=== PATIENT | male | born 1945 | race Caucasian/White ===

== ENCOUNTER 2018-04-21 09:00 | Outpatient (CLI) | payer MEDICARE, BC ==
[2018-04-21 10:04] LABS: Hemoglobin 14.8 g/dL (14.0-18.0); Mean Corpuscular HGB CONC 33.8 g/dL (32.0-36.0); Mean Corpuscular Hemoglobin 33.2 pg (27.0-31.0); Mean Corpuscular Volume 98.1 fl (80.0-94.0); Mean Platelet Volume 6.7 fL (7.4-10.4); Platelet Count 206 thou/uL (130-400); RBC Distribution Width 11.9 % (11.5-14.5); Red Blood Cell (RBC) Count 4.45 mill/uL (4.70-6.10); White Blood Cell (WBC) Count 8.4 thou/uL (4.8-10.8)
[2018-04-21 10:14] LABS: Prothrombin Time 12.8 SEC (12.0-14.7)
[2018-04-21 10:31] LABS: Anion Gap 10 mmol/L (10-20); BUN (Urea Nitrogen) 27 mg/dL (8.4-25.7); Calc. Creatinine Clearance 0 mL/min (70-130); Calcium 10.2 mg/dL (7.8-10.44); Carbon Dioxide 30 mmol/L (23-31); Chloride 102 mmol/L (98-107); Estimated GFR-MDRD 56; Glucose 97 mg/dL (80-115); Potassium 4.9 mmol/L (3.5-5.1); Sodium 137 mmol/L (136-145)
== END 2018-04-21 09:01 | disposition home or self-care (01) ==
LOC: LABBT 09:00
PROVIDERS: ATTEND Urology
DX: Z01.812 Encounter for preprocedural laboratory examination (principal); D49.4 Neoplasm of unspecified behavior of bladder; N21.0 Calculus in bladder
CPT/HCPCS: 80048; 85027; 85610; 85730; 93005; 93010

== ENCOUNTER 2018-04-23 07:45 | Day surgery (SDC) | payer MEDICARE, BC ==
[2018-04-21 09:34] VITALS: BMI 33.4
[2018-04-23] MEDS ORDERED: Levofloxacin 500 mg/D5W 100 ml Premix Bag ONE (08:30)
[2018-04-23] MEDS ORDERED: Fentanyl 250 MCG/5 ML VIAL ONE (08:41)
[2018-04-23] MEDS ORDERED: Iothalamate Meglumine 60% 50 ML VIAL FS ONE (09:35)
--- NOTE | 2018-04-23 11:28 | RAD ---
INTRAOPERATIVE FLUOROSCOPY FOR RETROGRADE IVP: HISTORY: Stones. FINDINGS: Intraoperative fluoroscopy is provided for Dr. Nolasco. A total of 10 images are submitted for interp retation. FINDINGS: There is an oval area in the distal left ureter which may represent focal calculus measuring 1.2 cm i n craniocaudal dimension. This finding appears to migrate. There is mild dilatation of the left int rarenal collecting system. The right intra- and extrarenal collecting systems unremarkable. IMPRESSION: Possible distal left ureteral calculus that migrates during the exam. POS: EMILY
[2018-04-23] MEDS ORDERED: traMADol HCl 50 MG TAB ONE (12:00)
[2018-04-23] MEDS ORDERED: PHENYLEPHRINE-NS 100 MCG/ML 10 ML SYRINGE ONE (14:00)
[2018-04-23] MEDS ORDERED: PROPOFOL 200 MG/20 ML VIAL ONE (14:00)
[2018-04-23] MEDS ORDERED: Lidocaine 1% PF 5 ML VIAL ONE (14:00)
[2018-04-23] MEDS ORDERED: ePHEDrine/0.9% NaCl/PF SYRINGE 50 mg/10 ml ONE (14:00)
--- NOTE | 2018-04-23 20:50 | OP ---
DATE OF PROCEDURE: 04/23/2018 PREOPERATIVE DIAGNOSES: Bladder stones, bladder lesion. POSTOPERATIVE DIAGNOSES: Bladder stones, bladder lesion. PROCEDURE PERFORMED: Cystoscopy, laser lithotripsy of bladder stones, bilateral retrograde pyelograms, and TURBT. SURGEON: Dr. Nolasco. ANESTHETIC: General. ESTIMATED BLOOD LOSS: 50 mL. DRAINS: An 20-Brazilian Dacosta catheter. FINDINGS: There was no stricture disease, there was enlarged lateral lobes and moderate median lobe. There were 2 ureteral orifices with clear efflux, two bladder stones, largest over a centimeter, probably between half a centimeter and centimeter. Retrograde studies appeared normal. He had a 2 cm area of papillary mucosal changes lateral to left ureteral orifice and not involving it , this was resected. OPERATIVE TECHNIQUE: After obtaining written and verbal consent from the patient, after receiving IV antibiotics, he was taken to the operating suite. He was placed in supine position on the treatment table. PlexiPulses were placed on his lower extremities and turned on. He was given a general anesthetic, oral intubation, and he was placed in the dorsal lithotomy position , sterilely prepped and draped. A health services manager film was obtained in fluoroscopy unit. Cystoscopy was performed with a 22-Brazilian sheath. This was well lubricated and passed under direct vision through the male urethra into the bladder with the aid of a 30-degree lens and video camera and monitor. The bladder was filled and emptied number of times being examined both the 30 and the 70-degree lens with the findings above. At this point, we went ahead and brought in the laser fiber and used this to fragment the stones into small pieces to elk out and and then three or four of them also removed with grasping forceps until there were no fragments remaining in the bladder. We then brought in a 5- Brazilian Pollack catheter, flushed with contrast and was placed into the left ureteral orifice and contrast was slowly injected in a retrograde manner filling out the left collecting system. There is no obvious filling defect or stone seen along the course and it drained well. The right side was done in a similar manner with similar findings. At this point, the instruments were removed. He was gently dilated with Shakira sounds to 26 Brazilian. A 24 Brazilian resectoscope sheath with visual obturator and 30-degree lens was passed through the male urethra into the bladder and Rendeevoo resectoscope with a gyrus generator and bladder tumor loop were used and 30-degree lens and video camera were used. We resected this area of papillary mucosa elliking out the fragments and coagulating the base and edges with electrocautery unit. At this point, the instruments were removed. Dacosta catheter was sterilely inserted and 10 mL placed in the balloon gravity. It was draining clear urine. He was taken out of dorsal lithotomy position. He was awakened and extubated and taken by stretcher to the recovery room. DEBORAH
[2018-04-27 18:11] LABS: CA Oxalate Dihydrate 30 % (.); CA Oxalate Monohydrate 50 % (.); CA Phosphate 20 % (.); Color Brown (.); Stone Weight 204.7 mg (.)
== END 2018-04-23 13:20 | disposition home or self-care (01) ==
LOC: SDC 07:45
PROVIDERS: ATTEND Urology
PROC: 0TCB8ZZ Extirpation of Matter from Bladder, Via Natural or Artificial Opening Endoscopic (ICD-10-PCS; principal; 2018-04-23)
PROC: 0TBB8ZX Excision of Bladder, Via Natural or Artificial Opening Endoscopic, Diagnostic (ICD-10-PCS; 2018-04-23)
DX: N30.80 Other cystitis without hematuria (principal); N21.0 Calculus in bladder; I10 Essential (primary) hypertension; E78.00 Pure hypercholesterolemia, unspecified; G47.30 Sleep apnea, unspecified; Z79.82 Long term (current) use of aspirin; Z79.899 Other long term (current) drug therapy
CPT/HCPCS: 52234; 52317; 74420; 82365; 88300; 88305; C1758; J1956; J2001; J2704; J3010; Q9961

== ENCOUNTER 2021-05-28 16:06 | Outpatient (CLI) | payer MEDICARE, BC ==
[~2021-05-28 16:06] MED LIST: Iopamidol 370 76% 100 ML VIAL ONE
== END 2021-05-28 16:07 | disposition home or self-care (01) ==
LOC: BICCT 16:06
PROVIDERS: ATTEND Otolaryngology Plastic Surgery within the Head & Neck
DX: L04.9 Acute lymphadenitis, unspecified (principal); R59.0 Localized enlarged lymph nodes
CPT/HCPCS: 70491; 82565; Q9967

== ENCOUNTER 2021-06-14 09:42 | Outpatient (CLI) | payer MEDICARE, BC | END 2021-06-14 09:43 | disposition home or self-care (01) | LOC: PET 09:42 | PROVIDERS: ATTEND Otolaryngology Plastic Surgery within the Head & Neck | DX: C09.0 Malignant neoplasm of tonsillar fossa (principal); C77.0 Secondary and unspecified malignant neoplasm of lymph nodes of head, face and neck | CPT/HCPCS: 78815; A9552 ==

== ENCOUNTER 2021-10-22 09:30 | Outpatient (CLI) | payer MEDICARE, BC | END 2021-10-22 09:31 | disposition home or self-care (01) | LOC: PET 09:30 | PROVIDERS: ATTEND Internal Medicine Hematology & Oncology | DX: C02.9 Malignant neoplasm of tongue, unspecified (principal) | CPT/HCPCS: 78815; A9552 ==

== ENCOUNTER 2021-10-31 12:49 | Outpatient (CLI) | payer MEDICARE, BC ==
[2021-10-31 15:05] LABS: Hemoglobin 14.2 g/dL (13.5-17.5); Mean Corpuscular HGB CONC 34.2 g/dL (32.0-36.0); Mean Corpuscular Volume 102.2 fl (81.2-95.1); Mean Platelet Volume 8.8 fl (7.4-10.4); Platelet Count 168 10x3/uL (150-450); RBC Distribution Width 12.7 % (11.5-14.5); Red Blood Cell (RBC) Count 4.06 10x6/uL (4.32-5.72)
[2021-10-31 15:31] LABS: Anion Gap 13 mmol/L (10-20); BUN (Urea Nitrogen) 21 mg/dL (8.4-25.7); Calc. Creatinine Clearance 0 mL/min (70-130); Calcium 9.9 mg/dL (7.8-10.44); Carbon Dioxide 26 mmol/L (23-31); Chloride 102 mmol/L (98-107); Glucose 90 mg/dL (83-110); Potassium 4.5 mmol/L (3.5-5.1); Sodium 136 mmol/L (136-145)
[2021-10-31 15:40] LABS: PTT 27.4 sec (22.0-33.0); Prothrombin Time 11.2 sec (9.5-12.1)
[2021-10-31 16:10] LABS: Bilirubin Neg (Negative); Blood, Urine 50 (Negative); Clarity Slightly Cloudy (Clear); Glucose, Urine (Dipstick) Normal (Negative); Ketone, Urine Negative (Negative); Leukocyte 500 (Negative); Nitrite Negative (Negative); Protein, Urine (Dipstick) 30 mg/dl (Neg-Trace); Specific Gravity, Urine 1.015 (1.002-1.036)
[2021-10-31 16:24] LABS: Bacteria/HPF 1+ HPF (None Seen); Squamous Epithelial 0-3 HPF (0-3); WBC/HPF 21-50 HPF (0-3)
[2021-10-31 22:22] LABS: SARS-CoV-2 PCR by NAA Not Detected (NotDetected)
== END 2021-10-31 12:50 | disposition home or self-care (01) ==
LOC: LABBT 12:49
PROVIDERS: ATTEND Urology
DX: Z01.812 Encounter for preprocedural laboratory examination (principal); Z20.822 Contact with and (suspected) exposure to COVID-19
CPT/HCPCS: 80048; 81001; 85027; 85610; 85730; 87086; U0003; U0005

== ENCOUNTER 2021-11-04 09:19 | Day surgery (SDC) | payer MEDICARE, BC ==
[2021-11-01 13:55] VITALS: BMI 27.2
[2021-11-04] MEDS ORDERED: ceFAZolin 2 GM/DEX 5% 100 ML BAG ONE (11:23)
[2021-11-04] MEDS ORDERED: Fentanyl 100 MCG/2 ML VIAL ONE (12:11)
[2021-11-04] MEDS ORDERED: Famotidine/PF 20 mg/2ml Vial ONE (12:11)
[2021-11-04] MEDS ORDERED: ePHEDrine 50 MG/ML VIAL ONE (12:18)
[2021-11-04] MEDS ORDERED: PROPOFOL 200 MG/20 ML VIAL ONE (12:18)
[2021-11-04] MEDS ORDERED: Metoclopramide HCl 10 MG/2 ML VIAL ONE (12:18)
[2021-11-04] MEDS ORDERED: Lidocaine 1% PF 5 ML VIAL ONE (12:18)
[2021-11-04] MEDS ORDERED: Phenylephrine 10 MG/ML VIAL ONE (12:18)
[2021-11-04] MEDS ORDERED: Ondansetron PF 4 MG/2 ML Vial ONE (12:18)
== END 2021-11-04 14:25 | disposition home or self-care (01) ==
LOC: SDC 09:19
PROVIDERS: ATTEND Urology
PROC: 0T5B8ZZ Destruction of Bladder, Via Natural or Artificial Opening Endoscopic (ICD-10-PCS; principal; 2021-11-04)
DX: N32.89 Other specified disorders of bladder (principal); N40.0 Benign prostatic hyperplasia without lower urinary tract symptoms; I10 Essential (primary) hypertension; Z79.82 Long term (current) use of aspirin; Z79.899 Other long term (current) drug therapy
CPT/HCPCS: J2370; J2405; J2704; J2765; J3010; J3490; S0028

== ENCOUNTER 2022-07-14 09:31 | Outpatient (CLI) | payer MEDICARE, BC | END 2022-07-14 09:32 | disposition home or self-care (01) | LOC: BICRAD 09:31 | PROVIDERS: ATTEND Internal Medicine Cardiovascular Disease | DX: T82.110A Breakdown (mechanical) of cardiac electrode, initial encounter (principal); I11.0 Hypertensive heart disease with heart failure; I50.22 Chronic systolic (congestive) heart failure | CPT/HCPCS: 71046 ==

== ENCOUNTER 2022-07-15 10:51 | Outpatient (CLI) | payer MEDICARE, BC ==
[2022-07-15 12:24] LABS: Hemoglobin 14.3 g/dL (13.5-17.5); Mean Corpuscular HGB CONC 34.3 g/dL (32.0-36.0); Mean Corpuscular Hemoglobin 33.5 pg (27.0-33.0); Mean Corpuscular Volume 97.7 fl (81.2-95.1); Mean Platelet Volume 8.4 fl (7.4-10.4); Platelet Count 217 10x3/uL (150-450); RBC Distribution Width 12.7 % (11.5-14.5); Red Blood Cell (RBC) Count 4.27 10x6/uL (4.32-5.72); White Blood Cell (WBC) Count 4.6 10x3/uL (3.5-10.5)
[2022-07-15 12:33] LABS: INR-International Normal Ratio 0.9; Prothrombin Time 10.2 sec (9.5-12.1)
[2022-07-15 12:36] LABS: Anion Gap 13 mmol/L (10-20); BUN (Urea Nitrogen) 29 mg/dL (8.4-25.7); Calc. Creatinine Clearance 0 mL/min (70-130); Carbon Dioxide 26 mmol/L (23-31); Chloride 105 mmol/L (98-107); Potassium 4.6 mmol/L (3.5-5.1); Sodium 139 mmol/L (136-145)
[2022-07-15 12:37] LABS: Calcium 9.6 mg/dL (7.8-10.44); Estimated GFR 90; Glucose 93 mg/dL (83-110)
== END 2022-07-15 10:52 | disposition home or self-care (01) ==
LOC: LABBT 10:51
PROVIDERS: ATTEND Internal Medicine Cardiovascular Disease
DX: Z01.812 Encounter for preprocedural laboratory examination (principal); Z20.822 Contact with and (suspected) exposure to COVID-19
CPT/HCPCS: 80048; 85027; 85610; 87811

== ENCOUNTER 2023-03-23 11:05 | Outpatient (CLI) | payer MEDICARE, BC | END 2023-03-23 11:06 | disposition home or self-care (01) | LOC: BICRAD 11:05 | PROVIDERS: ATTEND Psychiatry & Neurology Neurology | DX: Z48.812 Encounter for surgical aftercare following surgery on the circulatory system (principal); Z95.810 Presence of automatic (implantable) cardiac defibrillator | CPT/HCPCS: 71045 ==

== ENCOUNTER 2023-03-25 11:59 | Outpatient (CLI) | payer MEDICARE, BC ==
[~2023-03-25 11:59] MED LIST changes: -Iopamidol 370 76% 100 ML VIAL ONE; +Magnevist 469MG/ML 20 ML VIAL ONE
== END 2023-03-25 12:00 | disposition home or self-care (01) ==
LOC: MRI 11:59
PROVIDERS: ATTEND Psychiatry & Neurology Neurology
DX: G50.0 Trigeminal neuralgia (principal)
CPT/HCPCS: 70553; A9579

== ENCOUNTER 2023-12-23 09:08 | Outpatient (CLI) | payer MEDICARE, BC ==
[2023-12-23 10:36] LABS: Hematocrit 44.2 % (38.8-50.0); Hemoglobin 15.2 g/dL (13.5-17.5); Mean Corpuscular HGB CONC 34.4 g/dL (32.0-36.0); Mean Corpuscular Hemoglobin 33.9 pg (27.0-33.0); Mean Corpuscular Volume 98.4 fl (81.2-95.1); Mean Platelet Volume 8.3 fl (7.4-10.4); Platelet Count 182 10x3/uL (150-450); Red Blood Cell (RBC) Count 4.49 10x6/uL (4.32-5.72); White Blood Cell (WBC) Count 5.3 10x3/uL (3.5-10.5)
[2023-12-23 10:49] LABS: PTT 25.9 sec (22.0-33.0); Prothrombin Time 10.4 sec (9.5-12.1)
[2023-12-23 10:59] LABS: Anion Gap 13 mmol/L (10-20); BUN (Urea Nitrogen) 26 mg/dL (8.4-25.7); Calc. Creatinine Clearance 0 mL/min (70-130); Calcium 9.9 mg/dL (7.8-10.44); Carbon Dioxide 27 mmol/L (23-31); Chloride 107 mmol/L (98-107); Estimated GFR 83; Glucose 97 mg/dL (83-110); Potassium 4.5 mmol/L (3.5-5.1); Sodium 142 mmol/L (136-145)
== END 2023-12-23 09:09 | disposition home or self-care (01) ==
LOC: LABBT 09:08
PROVIDERS: ATTEND Surgery
DX: Z01.818 Encounter for other preprocedural examination (principal); C67.9 Malignant neoplasm of bladder, unspecified; I50.22 Chronic systolic (congestive) heart failure; Z79.899 Other long term (current) drug therapy
CPT/HCPCS: 80048; 85027; 85610; 85730; 87086; 93005; 93010

== ENCOUNTER 2023-12-29 10:11 | Inpatient (IN) | payer MEDICARE ==
[2023-12-23 10:03] VITALS: BMI 29.7
[2023-12-29] MEDS ORDERED: Iopamidol 30 ML ONE (12:33)
[2023-12-29] MEDS ORDERED: Ondansetron PF 4 MG/2 ML Vial ONE (12:38)
[2023-12-29] MEDS ORDERED: CEFAZOLIN 2 GM VIAL ONE (12:38)
[2023-12-29] MEDS ORDERED: Lidocaine 1% PF 5 ML VIAL ONE (12:38)
[2023-12-29] MEDS ORDERED: Dexamethasone 4 mg/ml Vial ONE (12:38)
[2023-12-29] MEDS ORDERED: Sodium Chloride 0.9% 100 ML ONE (12:39)
[2023-12-29] MEDS ORDERED: fentaNYL PF 100 MCG/2 ML SYRINGE ONE (12:39)
[2023-12-29] MEDS ORDERED: PROPOFOL 40 ML ONE (12:39)
[2023-12-29] MEDS ORDERED: Etomidate 40 MG (20 mL) VIAL ONE (12:48)
[2023-12-29] MEDS ORDERED: PHENYLEPHRINE-NS 100 MCG/ML 10 ML SYRINGE ONE (12:52)
[2023-12-29] MEDS ORDERED: Phenylephrine 10 MG/ML VIAL ONE (12:52)
[2023-12-29] MEDS ORDERED: ePHEDrine Sulfate 50 MG/10 ML VIAL ONE (12:53)
[2023-12-29] MEDS ORDERED: fentaNYL 50 mcg/mL 1 mL Vial ONE ×2 (14:27→15:19)
[2023-12-29] MEDS ORDERED: Hyoscyamine SL 0.125 MG TAB SL PRN (16:25)
[2023-12-29] MEDS ORDERED: Docusate 100 MG CAP PO PRN (16:25)
[2023-12-29] MEDS ORDERED: Acetaminophen 500 MG TAB PO PRN (16:25)
[2023-12-29] MEDS ORDERED: Fluticasone Propionate Nasal Spray 16 gm Bottle NASAL PRN ×2 (16:58→19:14)
[2023-12-29] MEDS ORDERED: Oxymetazoline HCl 0.05% (30 ML BOT) NS PRN (19:12)
[2023-12-29] MEDS ORDERED: Acetaminophen 325 MG TAB PO PRN (19:17)
[2023-12-29] MEDS: D5 1/2 NS w/20 mEq KCL 1,000 ML IV SCH (21:30)
[2023-12-29] MEDS: Icosapent Ethyl 1 GM CAPSULE PO SCH (21:34)
[2023-12-29] MEDS: Atorvastatin Calcium 20 MG TAB PO SCH (21:36)
[2023-12-29] MEDS: Gabapentin 100 MG CAP PO SCH (21:36)
[2023-12-29] MEDS: Acetaminophen 500 MG TAB PO SCH (21:37)
[2023-12-29] MEDS: Sacubitril 49 MG/Valsartan 51 MG TABLET PO SCH (21:38)
[2023-12-29] MEDS: Tamsulosin HCl 0.4 MG CAP PO SCH (21:38)
[2023-12-29] MEDS: carBAMazepine 200 MG TAB PO PRN (21:50)
[2023-12-29] MEDS: CEFAZOLIN 1 GM in Sodium Chloride 0.9% 100 ML IVPB SCH (21:55)
[2023-12-30 04:48] LABS: #Eosinphils 0.1 thou/uL (0.0-0.7); #Monocytes 0.6 thou/uL (0.11-0.59); #Neutrophils 4.9 thou/uL (1.40-6.50); %Basophils 0.3 % (0.0-1.0); %Eosinophils 1.6 % (0.0-10.0); %Lymphocytes 15.5 % (21.0-51.0); %Monocytes 9.3 % (0.0-10.0); Hematocrit 38.5 % (42.0-52.0); Hemoglobin 13.1 g/dL (14.0-18.0); Mean Corpuscular Hemoglobin 34.1 pg (27.0-31.0); Mean Corpuscular Volume 100.3 fl (78.0-98.0); Mean Platelet Volume 8.7 fL (7.4-10.4); Platelet Count 162 10x3/uL (130-400); RBC Distribution Width 13.2 % (11.5-14.5); Red Blood Cell (RBC) Count 3.84 mill/uL (4.70-6.10); White Blood Cell (WBC) Count 6.7 10x3/uL (4.8-10.8)
[2023-12-30] MEDS: Vitamin E 400 UNITS CAP PO SCH (09:51)
[2023-12-30] MEDS: Nitrofurantoin Monohyd/M-Cryst 100 MG CAP PO SCH (09:51)
[2023-12-30 12:07] VITALS: BP 111/70; TEMP 98
== END 2023-12-30 15:59 | disposition home or self-care (01) | DRG 663 ==
LOC: SDC 10:11 → SURG B 16:25
PROVIDERS: ADMIT Urology; ATTEND Urology
PROC: 0TBB8ZX Excision of Bladder, Via Natural or Artificial Opening Endoscopic, Diagnostic (ICD-10-PCS; principal; 2023-12-29)
PROC: 0W3R8ZZ Control Bleeding in Genitourinary Tract, Via Natural or Artificial Opening Endoscopic (ICD-10-PCS; 2023-12-29)
PROC: 3E033XZ Introduction of Vasopressor into Peripheral Vein, Percutaneous Approach (ICD-10-PCS; 2023-12-29)
DX: R31.0 Gross hematuria (principal); I50.22 Chronic systolic (congestive) heart failure; G50.0 Trigeminal neuralgia; Z95.810 Presence of automatic (implantable) cardiac defibrillator
CPT/HCPCS: 36415; 74420; 85025; 88305; A4311; J0690; J1100; J2371; J2405; J2704; J3010; J3480; J3490; Q9967

== ENCOUNTER 2024-01-13 06:12 | Day surgery (SDC) | payer MEDICARE ==
[2024-01-12 11:45] VITALS: BMI 28.8
[2024-01-13] MEDS ORDERED: Etomidate 40 MG (20 mL) VIAL ONE (07:24)
[2024-01-13] MEDS ORDERED: PROPOFOL 0 ML ONE (07:24)
[2024-01-13] MEDS ORDERED: Lidocaine 1% PF 5 ML VIAL ONE (07:40)
[2024-01-13] MEDS ORDERED: PHENYLEPHRINE-NS 100 MCG/ML 10 ML SYRINGE ONE (07:40)
[2024-01-13] MEDS ORDERED: PROPOFOL 20 ML ONE (07:54)
== END 2024-01-13 09:16 | disposition home or self-care (01) ==
LOC: SDC 06:12
PROVIDERS: ATTEND Internal Medicine Gastroenterology
PROC: 0DBN8ZZ Excision of Sigmoid Colon, Via Natural or Artificial Opening Endoscopic (ICD-10-PCS; principal; 2024-01-13)
DX: Z12.11 Encounter for screening for malignant neoplasm of colon (principal); K63.5 Polyp of colon; K57.30 Diverticulosis of large intestine without perforation or abscess without bleeding; N40.1 Benign prostatic hyperplasia with lower urinary tract symptoms; I10 Essential (primary) hypertension; E78.5 Hyperlipidemia, unspecified; Z79.899 Other long term (current) drug therapy; Z95.0 Presence of cardiac pacemaker
CPT/HCPCS: 88305; J2704

== ENCOUNTER 2024-04-04 09:29 | Outpatient (CLI) | payer MEDICARE ==
[2024-04-04] MEDS ORDERED: Iopamidol 370 76% 100 ML VIAL ONE (10:04)
== END 2024-04-04 09:30 | disposition home or self-care (01) ==
LOC: CT 09:29
PROVIDERS: ATTEND Radiology Radiation Oncology
DX: C10.9 Malignant neoplasm of oropharynx, unspecified (principal); Z92.21 Personal history of antineoplastic chemotherapy
CPT/HCPCS: 70491; 71260; Q9967

== ENCOUNTER 2024-04-25 09:13 | Emergency (ER) | payer MEDICARE ==
[2024-04-25] MEDS ORDERED: Ibuprofen 200 MG TAB ONE (10:17)
== END 2024-04-25 10:23 | disposition home or self-care (01) ==
LOC: ERS 09:13
DX: L03.012 Cellulitis of left finger (principal); I10 Essential (primary) hypertension; Z79.82 Long term (current) use of aspirin; Z79.899 Other long term (current) drug therapy

== ENCOUNTER 2024-11-29 15:41 | Outpatient (CLI) | payer MEDICARE | END 2024-11-29 15:42 | disposition home or self-care (01) | LOC: BICULT 15:41 | PROVIDERS: ATTEND Internal Medicine | DX: E04.9 Nontoxic goiter, unspecified (principal) | CPT/HCPCS: 76536 ==

== ENCOUNTER 2024-12-02 12:18 | Outpatient (CLI) | payer SELFPAY | END 2024-12-02 12:19 | disposition home or self-care (01) | LOC: RAD 12:18 | DX: S04.30XA Injury of trigeminal nerve, unspecified side, initial encounter (principal); Z92.3 Personal history of irradiation | CPT/HCPCS: 71046 ==

== ENCOUNTER 2025-10-18 09:19 | Emergency (ER) | payer MEDICARE | END 2025-10-18 11:50 | disposition home or self-care (01) | LOC: ERS 09:19 | DX: M25.511 Pain in right shoulder (principal); I10 Essential (primary) hypertension | CPT/HCPCS: 71045; 93005 ==